=== PATIENT | male | born 1990 | race American Indian/Alaskan Native ===

== ENCOUNTER 2018-09-04 17:42 | Emergency (ER) | payer SELFPAY ==
--- NOTE | 2018-09-04 17:57 | Emergency Department Report ---
Blank Doc - Documentation Documentation: This is a 28-year-old male that presents with URI symptoms. Tachycardia with febrile in the triage. This initial assessment/diagnostic orders/clinical plan/treatment(s) is/are subject to change based on patient's health status, clinical progression and re- assessment by fellow clinical providers in the ED. Further treatment and workup at subsequent clinical providers discretion. Patient/guardians urged not to elope from the ED as their condition may be serious if not clinically assessed and managed. Initial orders include: 1- Patient sent to MAIN ED for further evaluation and treatment 2- Code sepsis 3- Labs 4- CXR
[2018-09-04] MEDS ORDERED: NACL 0.9% 1000 ML IV ONE (18:03)
[2018-09-04] MEDS ORDERED: NACL 0.9% 1000 ML 1,000 ML IV ONE ×2 (18:08→21:32)
[2018-09-04] MEDS ORDERED: TORADOL IV ONE (18:08)
[2018-09-04] MEDS ORDERED: TYLENOL PO ONE (18:08)
--- NOTE | 2018-09-04 18:09 | Emergency Department Report ---
ED General Adult HPI - General Chief complaint: Upper Respiratory Infection Stated complaint: FLU LIKE SYMPTOMS Time Seen by Provider: 09/04/18 17:56 Source: patient, RN notes reviewed, old records reviewed Mode of arrival: Ambulatory Limitations: No Limitations - History of Present Illness Initial comments: This is a 28-year-old gentleman. The patient is not known to this provider previously. The patient presents to the emergency room today with a complaint of fever, myalgias, frontal sinus headache, sore throat, cough, malaise and fatigue. He i ndicates "I think I have the flu." Symptoms are constant for the past day or so, did not radiate anywhere, and did not have exacerbating or relieving factors. The patient denies severe neck pain, chest pain to this provider, abdominal pain, and irritative, obstructive urinary symptoms. He reports cramping in his lower extremities. He denies focal extremity weakness, numbness. He is not certain what his temperature max is. -: Gradual Location: head, mouth, abdomen, left, right, upper extremity, lower extremity Radiation: non-radiation Severity scale (0 -10): 10 Quality: aching, other Consistency: intermittent Improves with: none Worsens with: none - Related Data Previous Rx's Medication Instructions Recorded Last Taken Type Acetaminophen [Tylenol Arthritis] 650 mg PO Q6HR PRN #30 tablet.er 09/04/18 Unknown Rx Ibuprofen [Motrin] 600 mg PO Q8H PRN #30 tablet 09/04/18 Unknown Rx Magnesium Oxide [Mag-Ox] 400 mg PO QDAY #14 tablet 09/04/18 Unknown Rx Nitrofurantoin [place]/M-Cryst 100 mg PO Q12HR #14 capsule 09/04/18 Unknown Rx [Macrobid CAP] Ondansetron [Zofran Odt] 4 mg PO Q8HR PRN #20 tab.rapdis 09/04/18 Unknown Rx Oseltamivir [Tamiflu] 75 mg PO BID #9 cap 09/04/18 Unknown Rx Allergies Allergy/AdvReac Type Severity Reaction Status Date / Time nuts Allergy Anaphylaxis Uncoded 10/06/13 13:39 ED Review of Systems ROS: Stated complaint: FLU LIKE SYMPTOMS Other details as noted in HPI Constitutional: chills, fever, malaise, weakness Eyes: denies: vision change ENT: congestion. denies: ear pain Respiratory: cough Cardiovascular: denies: chest pain Gastrointestinal: denies: nausea, vomiting Genitourinary: denies: urgency, dysuria Musculoskeletal: arthralgia, myalgia Skin: denies: lesions Neurological: weakness ED Past Medical Hx - Past Medical History Hx Hypertension: No Hx Heart Attack/AMI: No Hx Congestive Heart Failure: No Hx Diabetes: No Hx Liver Disease: No Hx Renal Disease: No Hx Sickle Cell Disease: No Hx Seizures: No Hx Asthma: Yes (as a child) Hx COPD: No Hx HIV: No Additional medical history: History of peptic ulcer disease at 15-year-old. - Surgical History Past Surgical History?: Yes Hx Pacemaker: No Hx Internal Defibrillator: No - Social History Smoking Status: Never Smoker Substance Use Type: None - Medications Home Medications: Home Medications Medication Instructions Recorded Confirmed Last Taken Type Acetaminophen [Tylenol Arthritis] 650 mg PO Q6HR PRN #30 tablet.er 09/04/18 Unknown Rx Ibuprofen [Motrin] 600 mg PO Q8H PRN #30 tablet 09/04/18 Unknown Rx Magnesium Oxide [Mag-Ox] 400 mg PO QDAY #14 tablet 09/04/18 Unknown Rx Nitrofurantoin [place]igg/M-Cryst 100 mg PO Q12HR #14 capsule 09/04/18 Unknown Rx [Macrobid CAP] Ondansetron [Zofran Odt] 4 mg PO Q8HR PRN #20 tab.rapdis 09/04/18 Unknown Rx Oseltamivir [Tamiflu] 75 mg PO BID #9 cap 09/04/18 Unknown Rx ED Physical Exam - General Limitations: No Limitations General appearance: alert, in no apparent distress - Head Head exam: Present: atraumatic, normocephalic - Eye Eye exam: Present: normal appearance, EOMI. Absent: nystagmus - ENT ENT exam: Present: normal exam, normal orophraynx, mucous membranes moist, TM's normal bilaterally, normal external ear exam, other (there is no sinus tenderness) - Neck Neck exam: Present: normal inspection, full ROM. Absent: tenderness, meningi smus - Respiratory Respiratory exam: Present: normal lung sounds bilaterally. Absent: respiratory distress - Cardiovascular Cardiovascular Exam: Present: normal rhythm, tachycardia, normal heart sounds. Absent: systolic murmur, diastolic murmur, rubs, gallop - GI/Abdominal GI/Abdominal exam: Present: soft. Absent: distended, tenderness, guarding, rebound, rigid, pulsatile mass - Rectal Rectal exam: Present: deferred - Extremities Exam Extremities exam: Present: normal inspection, full ROM, other (2+ pulses noted in the bilateral upper, lower extremities. Compartments soft. No long bony tenderness. The pelvis is stable.). Absent: pedal edema, joint swelling, calf tenderness - Back Exam Back exam: Present: normal inspection, full ROM. Absent: tenderness, CVA tenderness (R), paraspinal tenderness, vertebral tenderness - Neurological Exam Neurological exam: Present: alert, oriented X3, CN II-XII intact, normal gait, other (Extraocular movements intact. Tongue midline. No facial droop. Facial sensation intact to light touch in the V1, V2, V3 distribution bilaterally. 5 and 5 strength in 4 extremities.. Sensation is intact to light touch in 4 extremities.). Absent: motor sensory deficit - Psychiatric Psychiatric exam: Present: normal affect, normal mood - Skin Skin exam: Present: warm, dry, intact, normal color. Absent: rash ED Course Vital Signs 09/04/18 09/04/18 09/04/18 18:01 18:39 18:54 Temperature 102.7 F H 102.9 F H Pulse Rate 130 H Respiratory 20 20 Rate Blood Pressure 146/52 Blood Pressure [Left] O2 Sat by Pulse 100 100 Oximetry 09/04/18 09/04/18 09/04/18 19:19 20:00 20:20 Temperature 102 F H 99.9 F H Pulse Rate 124 H 123 H Respiratory 14 12 Rate Blood Pressure 110/54 Blood Pressure 104/67 [Left] O2 Sat by Pulse 96 94 Oximetry 09/04/18 09/04/18 21:00 22:14 Temperature 98.8 F Pulse Rate 114 H Respiratory 17 Rate Blood Pressure 110/54 Blood Pressure [Left] O2 Sat by Pulse 87 Oximetry - Reevaluation(s) Reevaluation #1: 09/04/18 21:16 Differential diagnosis, including limited to: Influenza, influenza-like illness, viremia, pneumonia Assessment and plan: 28-year-old gentleman with fever, tachycardia, clinically sounds like influenza-like illness. He may apply to chest pain to this provider. Troponin negative, CK not especially elevated, tachycardia trending down, still 114 beats per minute, found to have very mild elevation in transaminases, likely secondary to presumed viral syndrome. Patient is treated supportively with antipyretics, anti-inflammatories, and IV fluids. Urinalysis reviewed and appreciated. Has no CVA tenderness, and does not endorse urinary symptoms. We will await normalization of abnormal vital signs. Reevaluation #2: 09/04/18 22:15 Resting heart rate now 96-98 bpm. Tolerating liquid feeds. Reports that he feels much improved. Patient will be discharged home with appropriate supportive medication. I instructed him as to the significance of his laboratory findings. He was counseled expectantly. He verbalized jose luis anderson. ED Medical Decision Making - Lab Data Result diagrams: 09/04/18 18:13 09/04/18 18:13 Vital Signs 09/04/18 09/04/18 09/04/18 18:01 18:39 18:54 Temperature 102.7 F H 102.9 F H Pulse Rate 130 H Respiratory 20 20 Rate Blood Pressure 146/52 Blood Pressure [Left] O2 Sat by Pulse 100 100 Oximetry 09/04/18 09/04/18 09/04/18 19:19 20:00 20:20 Temperature 102 F H 99.9 F H Pulse Rate 124 H 123 H Respiratory 14 12 Rate Blood Pressure 110/54 Blood Pressure 104/67 [Left] O2 Sat by Pulse 96 94 Oximetry 09/04/18 21:00 Temperature Pulse Rate 114 H Respiratory 17 Rate Blood Pressure 110/54 Blood Pressure [Left] O2 Sat by Pulse 87 Oximetry Lab Results 09/04/18 09/04/18 09/04/18 Range/Units 18:13 18:13 18:13 Hgb 14.8 (11.8-15.2) gm/dl Hct 44.7 (35.5-45.6) % Plt Count 184 (140-440) K/mm3 Sodium 132 L (137-145) mmol/L Potassium 4.4 (3.6-5.0) mmol/L Chloride 95.5 L (98-107) mmol/L Carbon Dioxide 25 (22-30) mmol/L Anion Gap 16 mmol/L BUN 13 (9-20) mg/dL Creatinine 1.0 (0.8-1.5) mg/dL Estimated GFR > 60 ml/min BUN/Creatinine Ratio 13 % Glucose 97 (75-100) mg/dL Calcium 8.4 (8.4-10.2) mg/dL Magnesium (1.7-2.3) mg/dL Total Bilirubin 0.20 (0.1-1.2) mg/dL AST 43 H (5-40) units/L ALT 64 H (7-56) units/L Alkaline Phosphatase 62 (35-129) units/L Total Creatine Kinase (55-170) units/L Troponin T (0.00-0.029) ng/mL Total Protein 6.7 (6.3-8.2) g/dL Albumin 3.6 L (3.9-5) g/dL Albumin/Globulin Ratio 1.2 % Urine Color (Yellow) Urine Turbidity (Clear) Urine pH (5.0-7.0) Ur Specific Ramsey (1.003-1.030) Urine Protein (Negative) mg/dL Urine Glucose (UA) (Negative) mg/dL Urine Ketones (Negative) mg/dL Urine Blood (Negative) Urine Nitrite (Negative) Urine Bilirubin (Negative) Urine Urobilinogen (<2.0) mg/dL Ur Leukocyte Esterase (Negative) Urine WBC (Auto) (0.0-6.0) /HPF Urine RBC (Auto) (0.0-6.0) /HPF Urine Bacteria (Auto) (Negative) /HPF Urine Mucus /HPF Group A Strep Rapid (Negative) 09/04/18 09/04/18 09/04/18 Range/Units 18:13 18:13 19:00 Hgb (11.8-15.2) gm/dl Hct (35.5-45.6) % Plt Count (140-440) K/mm3 Sodium (137-145) mmol/L Potassium (3.6-5.0) mmol/L Chloride (98-107) mmol/L Carbon Dioxide (22-30) mmol/L Anion Gap mmol/L BUN (9-20) mg/dL Creatinine (0.8-1.5) mg/dL Estimated GFR ml/min BUN/Creatinine Ratio % Glucose (75-100) mg/dL Calcium (8.4-10.2) mg/dL Magnesium 1.60 L (1.7-2.3) mg/dL Total Bilirubin (0.1-1.2) mg/dL AST (5-40) units/L ALT (7-56) units/L Alkaline Phosphatase (35-129) units/L Total Creatine Kinase 413 H (55-170) units/L Troponin T < 0.010 (0.00-0.029) ng/mL Total Protein (6.3-8.2) g/dL Albumin (3.9-5) g/dL Albumin/Globulin Ratio % Urine Color (Yellow) Urine Turbidity (Clear) Urine pH (5.0-7.0) Ur Specific Ramsey (1.003-1.030) Urine Protein (Negative) mg/dL Urine Glucose (UA) (Negative) mg/dL Urine Ketones (Negative) mg/dL Urine Blood (Negative) Urine Nitrite (Negative) Urine Bilirubin (Negative) Urine Urobilinogen (<2.0) mg/dL Ur Leukocyte Esterase (Negative) Urine WBC (Auto) (0.0-6.0) /HPF Urine RBC (Auto) (0.0-6.0) /HPF Urine Bacteria (Auto) (Negative) /HPF Urine Mucus /HPF Group A Strep Rapid Negative (Negative) 09/04/18 Range/Units 19:29 Hgb (11.8-15.2) gm/dl Hct (35.5-45.6) % Plt Count (140-440) K/mm3 Sodium (137-145) mmol/L Potassium (3.6-5.0) mmol/L Chloride (98-107) mmol/L Carbon Dioxide (22-30) mmol/L Anion Gap mmol/L BUN (9-20) mg/dL Creatinine (0.8-1.5) mg/dL Estimated GFR ml/min BUN/Creatinine Ratio % Glucose (75-100) mg/dL Calcium (8.4-10.2) mg/dL Magnesium (1.7-2.3) mg/dL Total Bilirubin (0.1-1.2) mg/dL AST (5-40) units/L ALT (7-56) units/L Alkaline Phosphatase (35-129) units/L Total Creatine Kinase (55-170) units/L Troponin T (0.00-0.029) ng/mL Total Protein (6.3-8.2) g/dL Albumin (3.9-5) g/dL Albumin/Globulin Ratio % Urine Color Yellow (Yellow) Urine Turbidity Clear (Clear) Urine pH 6.0 (5.0-7.0) Ur Specific Ramsey 1.029 (1.003-1.030) Urine Protein 30 mg/dl (Negative) mg/dL Urine Glucose (UA) Neg (Negative) mg/dL Urine Ketones Neg (Negative) mg/dL Urine Blood Neg (Negative) Urine Nitrite Neg (Negative) Urine Bilirubin Neg (Negative) Urine Urobilinogen 4.0 (<2.0) mg/dL Ur Leukocyte Esterase Neg (Negative) Urine WBC (Auto) 11.0 H (0.0-6.0) /HPF Urine RBC (Auto) 2.0 (0.0-6.0) /HPF Urine Bacteria (Auto) 1+ (Negative) /HPF Urine Mucus Few /HPF Group A Strep Rapid (Negative) - EKG Data -: EKG Interpreted by Ny EKG shows normal: sinus rhythm, axis, intervals, QRS complexes, ST-T waves - EKG Data When compared to previous EKG there are: previous EKG unavailable 09/04/18 21:15 Sinus, 1 15 bpm, tachycardia, borderline high left ventricular voltage, QTC, QR S, DE interval within normal limits, this EKG is not morphologically consistent with ST elevation myocardial infarction. - Radiology Data Radiology results: report reviewed, image reviewed X-ray the chest is unremarkable for acute disease Critical care attestation.: If time is entered above; I have spent that time in minutes in the direct care of this critically ill patient, excluding procedure time. ED Disposition Clinical Impression: Influenza-like illness, Transaminitis Disposition: [id number] TO HOME OR SELFCARE Is pt being admited?: No Does the pt Need Aspirin: No Condition: Stable Additional Instructions: Take the medications as needed/directed. Cultures were sent today, and was also be available in the next 3-5 days. Follow up with the primary care doctor or return to the emergency room for repeat checkup/evaluation within the next 2-3 days. However primary care doctor contact the medical records department to obtain culture results. Laboratory studies today indicated nonspecific elevation in liver function tests, and nonspecific presence of white blood cells in the urine. Both of these should be followed up by a primary care doctor within the next 7- 10 days. Taken medications as needed/directed. Avoid consumption of alcohol. Return to the emergency room right away with new, worsening or different symptoms, projectile vomiting, change in mental status, confusion, inability to speak, and inability to breathe. Prescriptions: Nitrofurantoin Trigg/M-Cryst [Macrobid CAP] 100 mg PO Q12HR #14 capsule Magnesium Oxide [Mag-Ox] 400 mg PO QDAY #14 tablet Ibuprofen [Motrin] 600 mg PO Q8H PRN #30 tablet PRN Reason: Pain Oseltamivir [Tamiflu] 75 mg PO BID #9 cap Acetaminophen [Tylenol Arthritis] 650 mg PO Q6HR PRN #30 tablet.er PRN Reason: Pain Ondansetron [Zofran Odt] 4 mg PO Q8HR PRN #20 tab.rapdis PRN Reason: Nausea Referrals: LIU WALL MD [Primary Care Provider] - 3-5 Days [facility] [Provider Group] - 3-5 Days [facility] [Provider Group] - 3-5 Days Forms: Work/School Release Form(ED)
[2018-09-04 18:31] LABS: Hematocrit 44.7 % (35.5-45.6); Hemoglobin 14.8 gm/dl (11.8-15.2)
[2018-09-04 18:51] LABS: Alanine Aminotransferase 64 units/L (7-56); Albumin 3.6 g/dL (3.9-5); BUN/Creatinine Ratio 13; Blood Urea Nitrogen 13 mg/dL (9-20); Calcium 8.4 mg/dL (8.4-10.2); Hemolysis Index 10
[2018-09-04] MEDS ORDERED: MAGNESIUM SULFATE 2GM/50ML 2 GM/50 ML BAG IV ONE (19:17)
[2018-09-04] MEDS ORDERED: MAG-OX PO STA (19:19)
--- NOTE | 2018-09-04 19:42 | XRay Report ---
PROCEDURE: XR CHEST ROUTINE 2V TECHNIQUE: Chest 2 views HISTORY: sepsis COMPARISONS: FINDINGS: Cardiac and mediastinal contours are unremarkable. No focal pulmonary infiltrate is identified. No pl eural fluid collection seen. The pulmonary vasculature is unremarkable. IMPRESSION: Normal two-view chest. This document is electronically signed by Rusty Catalan MD., September 04 2018 07:40:35 PM ET
[2018-09-04 19:55] LABS: Bacteria,Urine 1+ /HPF (Negative); Bilirubin,Urine NEG (Negative); Blood,Urine NEG (Negative); Color,Urine Yellow (Yellow); Mucus,Urine FEW /HPF
[2018-09-04] MEDS ORDERED: TAMIFLU PO STA (21:23)
[2018-09-04 22:26] VITALS: BP 105/54
== END 2018-09-04 23:10 | disposition home or self-care (01) ==
LOC: ED 17:42
DX: R50.9 Fever, unspecified (principal); R51 Headache; R05 Cough; R74.0 Nonspecific elevation of levels of transaminase and lactic acid dehydrogenase [LDH]; J45.909 Unspecified asthma, uncomplicated; Z91.018 Allergy to other foods
CPT/HCPCS: 36415; 71046; 80053; 81001; 82550; 83735; 84484; 85014; 85018; 85049; 87086; 87116; 87430; 93005; 93010; 96365; 96375; 99284; J1885; J3475; J7030

== ENCOUNTER 2018-10-25 22:06 | Emergency (ER) | payer SELFPAY ==
[2018-10-25 22:47] VITALS: BP 166/84
== END 2018-10-26 00:02 | disposition left against medical advice (07) ==
LOC: ED 22:06
DX: M79.602 Pain in left arm (principal); Z53.21 Procedure and treatment not carried out due to patient leaving prior to being seen by health care provider

== ENCOUNTER 2018-10-26 04:39 | Emergency (ER) | payer OTHER ==
--- NOTE | 2018-10-26 08:18 | Emergency Department Report ---
- General Chief complaint: Extremity Injury, Upper Stated complaint: SPIDER BITE ON LEFT ARM Time Seen by Provider: 10/26/18 08:11 Source: patient Mode of arrival: Ambulatory Limitations: No Limitations - History of Present Illness MD complaint: insect bite/sting, abscess/boil, discoloration -: days(s) (5) Tetanus Up to Date: yes Location: LUE Quality: aching, dull Associated symptoms: denies other symptoms - Related Data Previous Rx's Medication Instructions Recorded Last Taken Type Acetaminophen [Tylenol Arthritis] 650 mg PO Q6HR PRN #30 tablet.er 09/04/18 Unknown Rx Ibuprofen [Motrin] 600 mg PO Q8H PRN #30 tablet 09/04/18 Unknown Rx Magnesium Oxide [Mag-Ox] 400 mg PO QDAY #14 tablet 09/04/18 Unknown Rx Nitrofurantoin [place]/M-Cryst 100 mg PO Q12HR #14 capsule 09/04/18 Unknown Rx [Macrobid CAP] Ondansetron [Zofran Odt] 4 mg PO Q8HR PRN #20 tab.rapdis 09/04/18 Unknown Rx Oseltamivir [Tamiflu] 75 mg PO BID #9 cap 09/04/18 Unknown Rx Allergies Allergy/AdvReac Type Severity Reaction Status Date / Time nuts Allergy Anaphylaxis Uncoded 10/06/13 13:39 Abscess Boil HPI - HPI Chief Complaint: Extremity Injury, Upper Stated Complaint: SPIDER BITE ON LEFT ARM Time Seen by Provider: 10/26/18 08:11 Home Medications: Previous Rx's Medication Instructions Recorded Last Taken Type Acetaminophen [Tylenol Arthritis] 650 mg PO Q6HR PRN #30 tablet.er 09/04/18 Unknown Rx Ibuprofen [Motrin] 600 mg PO Q8H PRN #30 tablet 09/04/18 Unknown Rx Magnesium Oxide [Mag-Ox] 400 mg PO QDAY #14 tablet 09/04/18 Unknown Rx Nitrofurantoin [place]/M-Cryst 100 mg PO Q12HR #14 capsule 09/04/18 Unknown Rx [Macrobid CAP] Ondansetron [Zofran Odt] 4 mg PO Q8HR PRN #20 tab.rapdis 09/04/18 Unknown Rx Oseltamivir [Tamiflu] 75 mg PO BID #9 cap 09/04/18 Unknown Rx Allergies/Adverse Reactions: Allergies Allergy/AdvReac Type Severity Reaction Status Date / Time nuts Allergy Anaphylaxis Uncoded 10/06/13 13:39 ED Review of Systems ROS: Stated complaint: SPIDER BITE ON LEFT ARM Other details as noted in HPI Comment: All other systems reviewed and negative Constitutional: denies: chills, fever Respiratory: denies: cough, shortness of breath Cardiovascular: denies: chest pain Gastrointestinal: denies: abdominal pain, nausea, vomiting ED Past Medical Hx - Past Medical History Previous Medical History?: Yes Hx Hypertension: Yes Hx Heart Attack/AMI: No Hx Congestive Heart Failure: No Hx Diabetes: No Hx Liver Disease: No Hx Renal Disease: No Hx Sickle Cell Disease: No Hx Seizures: No Hx Asthma: Yes (as a child) Hx COPD: No Hx HIV: No Additional medical history: History of peptic ulcer disease at 15-year-old. - Surgical History Past Surgical History?: No Hx Pacemaker: No Hx Internal Defibrillator: No - Social History Smoking Status: Current Every Day Smoker Substance Use Type: None - Medications Home Medications: Home Medications Medication Instructions Recorded Confirmed Last Taken Type Acetaminophen [Tylenol Arthritis] 650 mg PO Q6HR PRN #30 tablet.er 09/04/18 Unknown Rx Ibuprofen [Motrin] 600 mg PO Q8H PRN #30 tablet 09/04/18 Unknown Rx Magnesium Oxide [Mag-Ox] 400 mg PO QDAY #14 tablet 09/04/18 Unknown Rx Nitrofurantoin [place]/M-Cryst 100 mg PO Q12HR #14 capsule 09/04/18 Unknown Rx [Macrobid CAP] Ondansetron [Zofran Odt] 4 mg PO Q8HR PRN #20 tab.rapdis 09/04/18 Unknown Rx Oseltamivir [Tamiflu] 75 mg PO BID #9 cap 09/04/18 Unknown Rx ED Physical Exam - General Limitations: No Limitations General appearance: alert, in no apparent distress - Head Head exam: Present: atraumatic, normocephalic, normal inspection - Eye Eye exam: Present: normal appearance, PERRL - ENT ENT exam: Present: normal exam, normal orophraynx, mucous membranes moist - Respiratory Respiratory exam: Present: normal lung sounds bilaterally - Cardiovascular Cardiovascular Exam: Present: regular rate, normal heart sounds - GI/Abdominal GI/Abdominal exam: Present: soft. Absent: distended, tenderness - Neurological Exam Neurological exam: Present: alert, oriented X3 - Skin Skin exam: Present: warm, intact - Other Other exam information: Skin induration to the left forearm, 33 cm, not fluctuant consistent with clinical evidence of cellulitis. Critical care attestation.: If time is entered above; I have spent that time in minutes in the direct care of this critically ill patient, excluding procedure time. ED Disposition Clinical Impression: Cellulitis Disposition: - TO HOME OR SELFCARE Is pt being admited?: No Condition: Stable Instructions: Cellulitis (ED) Referrals: LIU WALL MD [Primary Care Provider] - 3-5 Days
== END 2018-10-26 08:34 | disposition home or self-care (01) ==
LOC: ED 04:39
DX: L03.114 Cellulitis of left upper limb (principal); F17.200 Nicotine dependence, unspecified, uncomplicated; I10 Essential (primary) hypertension; J45.909 Unspecified asthma, uncomplicated; Z91.018 Allergy to other foods
CPT/HCPCS: 99282

== ENCOUNTER 2021-03-21 21:59 | Emergency (ER) | payer SELFPAY ==
[2021-03-21] MEDS ORDERED: ONDANSETRON 4 MG/2 ML INJ IV ONE (22:12)
[2021-03-21] MEDS ORDERED: SODIUM CHLORIDE 0.9% 1000 ML 1,000 ML IV ONE (22:12)
[2021-03-21] MEDS ORDERED: MORPHINE 4 MG/1 ML INJ IV ONE (22:12)
--- NOTE | 2021-03-21 22:18 | Emergency Department Report ---
ED Lower Extremity HPI - General Chief Complaint: Extremity Injury, Lower Stated Complaint: LEG INJURY Time Seen by Provider: 03/21/21 22:08 Source: patient Mode of arrival: Wheelchair Limitations: No Limitations - History of Present Illness Initial Comments: Patient is 31 years old male with no significant past medical history. Patient presented to the ER complaining of left knee pain. Patient stated that a barrel full with garbage fell on his left knee. Patient stated that he walk few steps and he started hearing pops. Patient rated his pain as 8 out of 10. Patient denied any other injuries. Patient denied any weakness, numbness or tingling sensation. MD Complaint: knee injury -: minutes(s) Injury: Knee: Left Type of Injury: blunt Severity: moderate Severity scale (0 -10): 6 Improves With: immobilization Worsens With: movement Context: direct blow Associated Symptoms: snap/pop sensation - Related Data Previous Rx's Medication Instructions Recorded Last Taken Type Acetaminophen [Tylenol Arthritis] 650 mg PO Q6HR PRN #30 tablet.er 09/04/18 Unknown Rx Ibuprofen [Motrin] 600 mg PO Q8H PRN #30 tablet 09/04/18 Unknown Rx Magnesium Oxide [Mag-Ox] 400 mg PO QDAY #14 tablet 09/04/18 Unknown Rx Nitrofurantoin [place]/M-Cryst 100 mg PO Q12HR #14 capsule 09/04/18 Unknown Rx [Macrobid CAP] Ondansetron [Zofran Odt] 4 mg PO Q8HR PRN #20 tab.rapdis 09/04/18 Unknown Rx Oseltamivir [Tamiflu] 75 mg PO BID #9 cap 09/04/18 Unknown Rx cephALEXin [Keflex] 500 mg PO Q8HR #28 cap 10/26/18 Unknown Rx Allergies Allergy/AdvReac Type Severity Reaction Status Date / Time nuts Allergy Anaphylaxis Uncoded 10/06/13 13:39 ED Review of Systems ROS: Stated complaint: LEG INJURY Other details as noted in HPI Comment: All other systems reviewed and negative Constitutional: denies: chills, fever Respiratory: denies: cough, shortness of breath, SOB with exertion, SOB at rest, wheezing Cardiovascular: denies: chest pain, palpitations Gastrointestinal: denies: abdominal pain, nausea, vomiting, diarrhea, constipation, hematemesis, melena Musculoskeletal: arthralgia. denies: back pain Neurological: abnormal gait. denies: headache, weakness, numbness, paresthesias, confusion ED Past Medical Hx - Past Medical History Hx Hypertension: Yes Hx Heart Attack/AMI: No Hx Congestive Heart Failure: No Hx Diabetes: No Hx Liver Disease: No Hx Renal Disease: No Hx Sickle Cell Disease: No Hx Seizures: No Hx Asthma: Yes (as a child) Hx COPD: No Hx HIV: No Additional medical history: History of peptic ulcer disease at 15-year-old. - Surgical History Hx Pacemaker: No Hx Internal Defibrillator: No - Social History Smoking Status: Current Every Day Smoker Substance Use Type: None - Medications Home Medications: Home Medications Medication Instructions Recorded Confirmed Last Taken Type Acetaminophen [Tylenol Arthritis] 650 mg PO Q6HR PRN #30 tablet.er 09/04/18 Unknown Rx Ibuprofen [Motrin] 600 mg PO Q8H PRN #30 tablet 09/04/18 Unknown Rx Magnesium Oxide [Mag-Ox] 400 mg PO QDAY #14 tablet 09/04/18 Unknown Rx Nitrofurantoin [place]/M-Cryst 100 mg PO Q12HR #14 capsule 09/04/18 Unknown Rx [Macrobid CAP] Ondansetron [Zofran Odt] 4 mg PO Q8HR PRN #20 tab.rapdis 09/04/18 Unknown Rx Oseltamivir [Tamiflu] 75 mg PO BID #9 cap 09/04/18 Unknown Rx cephALEXin [Keflex] 500 mg PO Q8HR #28 cap 10/26/18 Unknown Rx ED Physical Exam - General Limitations: No Limitations General appearance: alert, in no apparent distress - Head Head exam: Present: atraumatic, normocephalic, normal inspection - Eye Eye exam: Present: normal appearance, PERRL - ENT ENT exam: Present: normal exam, normal orophraynx, mucous membranes moist - Neck Neck exam: Present: normal inspection, full ROM. Absent: tenderness, meningismus - Respiratory Respiratory exam: Present: normal lung sounds bilaterally - Cardiovascular Cardiovascular Exam: Present: regular rate, normal rhythm, normal heart sounds - GI/Abdominal GI/Abdominal exam: Present: soft, normal bowel sounds. Absent: distended, tenderness, guarding, rebound, rigid, organomegaly, mass, bruit, pulsatile mass, hernia - Extremities Exam Extremities exam: Present: normal capillary refill. Absent: pedal edema, joint swelling, calf tenderness (So) - Expanded Lower Extremity Exam Left Hip exam: Present: normal inspection, full ROM. Absent: tenderness Upper Leg exam: Present: normal inspection, full ROM Knee exam: Present: normal inspection, tenderness. Absent: full ROM, swelling, abrasion, laceration, ecchymosis, deformity, dislocation, erythema, effusion Lower Leg exam: Present: normal inspection, full ROM Ankle exam: Present: normal inspection, full ROM Foot/Toe exam: Present: normal inspection, full ROM Neuro vascular tendon exam: Present: no vascular compromise. Absent: pulse deficit, abnormal cap refill, motor deficit, sensory deficit, tendon deficit, extremity cold to touch, pallor - Back Exam Back exam: Present: normal inspection, full ROM. Absent: CVA tenderness (R), CVA tenderness (L) - Neurological Exam Neurological exam: Present: alert, oriented X3, CN II-XII intact - Skin Skin exam: Present: warm, intact, normal color ED Course Vital Signs 03/21/21 03/21/21 03/21/21 22:14 22:15 22:31 Pulse Rate 104 H 105 H 97 H Respiratory 12 16 Rate Blood Pressure 145/83 137/96 - Orthopedic Splinting/Casting Injury #1 Side: left Lower Extremity Injury Location: knee Lower Extremity Immobilizer: knee immobilizer ED Lower Extremity MDM - Radiology Data Radiology results: report reviewed Patient is 31 years old male with no significant past medical history. Patient presented to the ER complaining of left knee pain. Patient stated that a barrel full with garbage fell on his left knee. Patient stated that he walk few steps and he started hearing pops. Patient rated his pain as 8 out of 10. Patient denied any other injuries. Patient denied any weakness, numbness or tingling sensation. Patient received morphine and Zofran for pain. Left knee x-ray is unremarkable. Patient stated that his pain is better but he feels like his knee is giving up on him. I did not appreciate any knee effusion however ligamentous injury or tear is a possibility. I applied a knee immobilizer and advised patient to follow-up with orthopedics, Dr. Lawler for further management in case patient will need an MRI. Patient understood the instruction. Patient advised to return to the ER if he develop any new symptoms. Critical care attestation.: If time is entered above; I have spent that time in minutes in the direct care of this critically ill patient, excluding procedure time. ED Disposition Clinical Impression: Left knee injury Disposition: HOME / SELF CARE / HOMELESS Is pt being admited?: No Condition: Stable Instructions: Knee Sprain, Adult Referrals: TURNER LAWLER MD [Staff Physician] - 3-5 Days
[2021-03-21 22:37] VITALS: BP 137/96
--- NOTE | 2021-03-21 22:46 | XRay Report ---
LEFT KNEE 3 VIEW(S) INDICATION / CLINICAL INFORMATION: Left knee injury...barrel rolled into back of knee COMPARISON: None available. FINDINGS: BONES / JOINT(S): Small ossific density at proximal fibular head likely represent sequela of remote i njury. Small oval lucency at the medial femoral condyle weightbearing portion may represent a cyst or possibly osteochondral lesion. No displaced fracture is seen. No joint effusion. SOFT TISSUES: No significant abnormality. ADDITIONAL FINDINGS: None. Signer Name: Sanket Lara MD Signed: 03/21/2021 10:42 PM Workstation Name: [id number]
== END 2021-03-22 00:08 | disposition home or self-care (01) ==
LOC: ED 21:59
DX: S89.92XA Unspecified injury of left lower leg, initial encounter (principal); I10 Essential (primary) hypertension; J45.909 Unspecified asthma, uncomplicated; K27.9 Peptic ulcer, site unspecified, unspecified as acute or chronic, without hemorrhage or perforation; F17.200 Nicotine dependence, unspecified, uncomplicated; Z91.010 Allergy to peanuts; W20.8XXA Other cause of strike by thrown, projected or falling object, initial encounter; Y93.89 Activity, other specified; Y92.89 Other specified places as the place of occurrence of the external cause; Y99.8 Other external cause status
CPT/HCPCS: 29505; 73562; 96361; 96374; 96375; 99283; J2270; J2405; J7030